=== PATIENT | female | born 1965 | race Caucasian/White ===

== ENCOUNTER 2019-06-30 17:30 | Emergency (ER) | payer OTHER ==
[2019-06-30 17:42] VITALS: TEMP 97.7
[2019-06-30] MEDS ORDERED: SODIUM CHLORIDE 0.9% 1,000 ML IV STA (17:58)
[2019-06-30] MEDS ORDERED: PANTOPRAZOLE 40 MG/10 ML VIAL IVP STA (17:58)
[2019-06-30] MEDS ORDERED: ONDANSETRON 4 MG/2 ML VIAL IVP STA (17:58)
[2019-06-30] MEDS ORDERED: methylPREDNISolone SOD SUCCI 125 MG/2 ML VIAL IV STA (18:00)
[2019-06-30] MEDS ORDERED: IPRATROPIUM-ALBUTEROL 3 ML NEB INHALATION STA (18:00)
--- NOTE | 2019-06-30 18:14 | ED ---
Abdominal Pain HPI - General Chief Complaint: Abdominal Pain Stated Complaint: Cough, abd pain Time Seen by Provider: 06/30/19 17:43 Source: patient, RN notes reviewed, old records reviewed Mode of arrival: ambulatory Limitations: no limitations - History of Present Illness Initial Comments: Patient is a 54-year-old female presents emergency room today for chief complaint of coughing, right ear plugged and abdominal pain. She's been having symptoms for the past week. At this time patient's reporting a productive cough. No fever. She states that she has been nauseated not been eating much. She denies any associated fevers or chills. Patient states that she is a smoker but has not been diagnosed with COPD. - Related Data Home Medications Medication Instructions Recorded Confirmed Atorvastatin [Lipitor] 80 mg PO DAILY 05/12/14 08/22/15 Cyclobenzaprine [Flexeril] 10 mg PO DAILY PRN 05/12/14 08/22/15 Estrogens, Conjugated [Premarin] 0.625 mg PO DAILY 05/12/14 08/22/15 Ibuprofen [Motrin] 800 mg PO Q8HR PRN 05/12/14 08/22/15 Lisinopril [Zestril] 5 mg PO DAILY 05/12/14 08/22/15 Niacin [Niacin ER] 500 mg PO DAILY 05/12/14 08/22/15 Omeprazole [PriLOSEC] 20 mg PO AC-BRKFST 05/12/14 08/22/15 PARoxetine [Paxil] 20 mg PO DAILY 05/12/14 08/22/15 Topiramate [Qudexy Xr] 25 mg PO DAILY 05/12/14 08/22/15 metFORMIN HCL [Glucophage] 500 mg PO BID 05/12/14 08/22/15 Previous Rx's Medication Instructions Recorded Albuterol Sulfate [Proair Hfa] 2 puff INHALATION Q4HR PRN #1 05/01/14 inhaler Acetaminophen-Codeine 300-30mg 1 tab PO Q4H PRN #20 tablet 08/22/15 [Tylenol #3] Ciprofloxacin HCl [Cipro] 500 mg PO Q12HR #20 tablet 08/22/15 Albuterol Inhaler [Ventolin Hfa 1 - 2 puff INHALATION RT-Q6H PRN 06/30/19 Inhaler] #1 inhaler Azithromycin 250 mg PO DAILY 5 Days #6 tab 06/30/19 Famotidine [Pepcid] 20 mg PO DAILY #20 tablet 06/30/19 Ondansetron Odt [Zofran Odt] 4 mg PO Q8HR PRN #12 tab 06/30/19 predniSONE 50 mg PO DAILY #5 tablet 06/30/19 Allergies Allergy/AdvReac Type Severity Reaction Status Date / Time No Known Allergies Allergy Verified 06/30/19 17:41 Review of Systems ROS Statement: Those systems with pertinent positive or pertinent negative responses have been documented in the HPI. ROS Other: All systems not noted in ROS Statement are negative. Past Medical History Past Medical History: Diabetes Mellitus, Hyperlipidemia, Hypertension History of Any Multi-Drug Resistant Organisms: None Reported Past Surgical History: Hysterectomy Past Psychological History: No Psychological Hx Reported Smoking Status: Current every day smoker Past Alcohol Use History: None Reported Past Drug Use History: None Reported General Exam - General Exam Comments Initial Comments: 54-year-old female. Alert and oriented. Limitations: no limitations Head exam: Present: atraumatic, normocephalic, normal inspection Eye exam: Present: normal appearance, PERRL, EOMI. Absent: scleral icterus, conjunctival injection, periorbital swelling ENT exam: Present: normal exam, mucous membranes moist Neck exam: Present: normal inspection. Absent: tenderness, meningismus, lymphadenopathy Respiratory exam: Present: wheezes (Minimal wheezing bilaterally.). Absent: normal lung sounds bilaterally, respiratory distress, rales, rhonchi, stridor Cardiovascular Exam: Present: regular rate, normal rhythm, normal heart sounds. Absent: systolic murmur, diastolic murmur, rubs, gallop, clicks GI/Abdominal exam: Present: soft, tenderness (Epigastric tenderness), normal bowel sounds. Absent: distended, guarding, rebound, rigid Extremities exam: Present: normal inspection, full ROM, normal capillary refill. Absent: tenderness, pedal edema, joint swelling, calf tenderness Back exam: Present: normal inspection Neurological exam: Present: alert, oriented X3, CN II-XII intact Psychiatric exam: Present: normal affect, normal mood Skin exam: Present: warm, dry, intact, normal color. Absent: rash Course Vital Signs 06/30/19 06/30/19 06/30/19 17:40 18:17 18:24 Temperature 97.7 F Pulse Rate 75 63 67 Respiratory 18 16 16 Rate Blood Pressure 116/79 O2 Sat by Pulse 93 L Oximetry 06/30/19 18:43 Temperature Pulse Rate 76 Respiratory 16 Rate Blood Pressure 135/79 O2 Sat by Pulse 99 Oximetry Medical Decision Making - Medical Decision Making This patient's a 54-year-old female who presents emergency Department with multiple complaints including ear pain, cough congestion. She also complains of some nausea. Abdominal pain. Patient's labs reviewed at this time and unremarkable. Chest x-ray and KUB show no acute changes. On exam she did have some wheezing, with a productive cough concern for bronchitis. She is a smoker. Discussed the importance of smoking cessation for greater than 5 minutes. She states she would be willing to try a nicotine patches. Patient at this time feels much better after the Solu-Medrol breathing treatment, Protonix and Zofran. I discussed that I will discharge the Patient with multiple prescriptions including Zofran and Protonix help with possible gastritis or ulcer. Also short course of steroids and azithromycin for bronchitis. Discussed also using inhaler. PATIENT'S aunt to return parameters were discussed. - Lab Data Result diagrams: 06/30/19 18:03 06/30/19 18:03 Lab Results 06/30/19 06/30/19 06/30/19 Range/Units 18:03 18:03 18:03 WBC 7.0 (3.8-10.6) k/uL RBC 4.67 (3.80-5.40) m/uL Hgb 14.2 (11.4-16.0) gm/dL Hct 42.5 (34.0-46.0) % MCV 91.0 (80.0-100.0) fL MCH 30.4 (25.0-35.0) pg MCHC 33.4 (31.0-37.0) g/dL RDW 13.4 (11.5-15.5) % Plt Count 330 (150-450) k/uL Neutrophils % 49 % Lymphocytes % 41 % Monocytes % 5 % Eosinophils % 2 % Basophils % 0 % Neutrophils # 3.5 (1.3-7.7) k/uL Lymphocytes # 2.9 (1.0-4.8) k/uL Monocytes # 0.3 (0-1.0) k/uL Eosinophils # 0.2 (0-0.7) k/uL Basophils # 0.0 (0-0.2) k/uL PT 9.8 (9.0-12.0) sec INR 0.9 (<1.2) APTT 21.6 L (22.0-30.0) sec Sodium 139 (137-145) mmol/L Potassium 4.2 (3.5-5.1) mmol/L Chloride 111 H (98-107) mmol/L Carbon Dioxide 21 L (22-30) mmol/L Anion Gap 7 mmol/L BUN 13 (7-17) mg/dL Creatinine 0.72 (0.52-1.04) mg/dL Est GFR (CKD-EPI)AfAm >90 (>60 ml/min/1.73 sqM) Est GFR (CKD-EPI)NonAf >90 (>60 ml/min/1.73 sqM) Glucose 114 H (74-99) mg/dL Calcium 9.4 (8.4-10.2) mg/dL Total Bilirubin 0.1 L (0.2-1.3) mg/dL AST 20 (14-36) U/L ALT 19 (4-34) U/L Alkaline Phosphatase 58 (38-126) U/L Total Protein 6.3 (6.3-8.2) g/dL Albumin 3.7 (3.5-5.0) g/dL Amylase <30 L (30-110) U/L Lipase 54 (23-300) U/L Urine Color Urine Appearance (Clear) Urine pH (5.0-8.0) Ur Specific Rudyard (1.001-1.035) Urine Protein (Negative) Urine Glucose (UA) (Negative) Urine Ketones (Negative) Urine Blood (Negative) Urine Nitrite (Negative) Urine Bilirubin (Negative) Urine Urobilinogen (<2.0) mg/dL Ur Leukocyte Esterase (Negative) 06/30/19 Range/Units 18:42 WBC (3.8-10.6) k/uL RBC (3.80-5.40) m/uL Hgb (11.4-16.0) gm/dL Hct (34.0-46.0) % MCV (80.0-100.0) fL MCH (25.0-35.0) pg MCHC (31.0-37.0) g/dL RDW (11.5-15.5) % Plt Count (150-450) k/uL Neutrophils % % Lymphocytes % % Monocytes % % Eosinophils % % Basophils % % Neutrophils # (1.3-7.7) k/uL Lymphocytes # (1.0-4.8) k/uL Monocytes # (0-1.0) k/uL Eosinophils # (0-0.7) k/uL Basophils # (0-0.2) k/uL PT (9.0-12.0) sec INR (<1.2) APTT (22.0-30.0) sec Sodium (137-145) mmol/L Potassium (3.5-5.1) mmol/L Chloride (98-107) mmol/L Carbon Dioxide (22-30) mmol/L Anion Gap mmol/L BUN (7-17) mg/dL Creatinine (0.52-1.04) mg/dL Est GFR (CKD-EPI)AfAm (>60 ml/min/1.73 sqM) Est GFR (CKD-EPI)NonAf (>60 ml/min/1.73 sqM) Glucose (74-99) mg/dL Calcium (8.4-10.2) mg/dL Total Bilirubin (0.2-1.3) mg/dL AST (14-36) U/L ALT (4-34) U/L Alkaline Phosphatase (38-126) U/L Total Protein (6.3-8.2) g/dL Albumin (3.5-5.0) g/dL Amylase (30-110) U/L Lipase (23-300) U/L Urine Color Yellow Urine Appearance Clear (Clear) Urine pH 6.0 (5.0-8.0) Ur Specific Rudyard 1.019 (1.001-1.035) Urine Protein Negative (Negative) Urine Glucose (UA) Negative (Negative) Urine Ketones Negative (Negative) Urine Blood Negative (Negative) Urine Nitrite Negative (Negative) Urine Bilirubin Negative (Negative) Urine Urobilinogen <2.0 (<2.0) mg/dL Ur Leukocyte Esterase Negative (Negative) 06/30/19 19:12 EKG performed at 1851 shows normal sinus rhythm normal ECG. Ventricularly 67 bpm. And 40 ms. Frustration 94 ms. QT QTc is 420/445 ms. - Radiology Data Radiology results: report reviewed Chest x-ray shows a nonacute abdomen. Chest x-ray is normal no changes. Disposition Clinical Impression: Bronchitis, Gastritis Disposition: HOME SELF-CARE Condition: Good Instructions (If sedation given, give patient instructions): Gastritis (ED), Acute Bronchitis (ED) Additional Instructions: Please use medication as discussed. Please follow up with family doctor if symptoms have not improved over the next two days. Please return to the emergency room if your symptoms increase or worsen or for any other concerns. Prescriptions: Azithromycin 250 mg PO DAILY 5 Days #6 tab Famotidine [Pepcid] 20 mg PO DAILY #20 tablet predniSONE 50 mg PO DAILY #5 tablet Albuterol Inhaler [Ventolin Hfa Inhaler] 1 - 2 puff INHALATION RT-Q6H PRN #1 inhaler PRN Reason: Cough Ondansetron Odt [Zofran Odt] 4 mg PO Q8HR PRN #12 tab PRN Reason: Nausea Is patient prescribed a controlled substance at d/c from ED?: No Referrals: Manolo Bolaños MD [Primary Care Provider] - 1-2 days Time of Disposition: 19:36
[2019-06-30 18:18] LABS: Basophils % (A) 0 %; Eosinophils # (A) 0.2 k/uL (0-0.7); Eosinophils % (A) 2 %; HCT 42.5 % (34.0-46.0); HGB 14.2 gm/dL (11.4-16.0); Lymphocytes # (A) 2.9 k/uL (1.0-4.8); Lymphocytes % (A) 41 %; MCH 30.4 pg (25.0-35.0); MCHC 33.4 g/dL (31.0-37.0); Mean Platelet Volume 7.5; Monocytes # (A) 0.3 k/uL (0-1.0); Monocytes % (A) 5 %; Neutrophils # (A) 3.5 k/uL (1.3-7.7); Neutrophils % (A) 49 %; Platelet Count 330 k/uL (150-450); RBC 4.67 m/uL (3.80-5.40); RDW 13.4 % (11.5-15.5)
[2019-06-30 18:20] VITALS: RESP 16
[2019-06-30 18:27] LABS: ALT 19 U/L (4-34); AST 20 U/L (14-36); African American GFR (CKD) >90 (>60 ml/min/1.73 sqM); Albumin 3.7 g/dL (3.5-5.0); Alkaline Phosphatase 58 U/L (38-126); Amylase <30 U/L (30-110); Anion Gap 7 mmol/L; Blood Urea Nitrogen 13 mg/dL (7-17); Calcium 9.4 mg/dL (8.4-10.2); Carbon Dioxide 21 mmol/L (22-30); Chloride 111 mmol/L (98-107); Glucose 114 mg/dL (74-99); Non-African American GFR(CKD) >90 (>60 ml/min/1.73 sqM); Potassium 4.2 mmol/L (3.5-5.1); Sodium 139 mmol/L (137-145); Total Bilirubin 0.1 mg/dL (0.2-1.3); Total Protein 6.3 g/dL (6.3-8.2)
[2019-06-30 18:33] LABS: INR 0.9 (<1.2); Prothrombin Time 9.8 sec (9.0-12.0)
[2019-06-30 18:39] LABS: Partial Thromboplastin Time 21.6 sec (22.0-30.0)
[2019-06-30 18:46] VITALS: BP 135/79; PULSE 76
--- NOTE | 2019-06-30 18:51 | XR ---
EXAMINATION TYPE: XR KUB DATE OF EXAM: 06/30/2019 COMPARISON: NONE HISTORY: Cough and congestion TECHNIQUE: 2 views upright FINDINGS: Bowel gas pattern is normal. There is no sign of intestinal obstruction or pneumoperitoneum . Fecal pattern is normal. There is no sign of a mass. There are no pathologic calcifications over th e kidneys. IMPRESSION: Nonacute abdomen.
--- NOTE | 2019-06-30 18:52 | XR ---
EXAMINATION TYPE: XR chest 2V DATE OF EXAM: 06/30/2019 COMPARISON: 05/01/2014 HISTORY: Abdominal pain chest pain TECHNIQUE: FINDINGS: Heart and mediastinum are normal. Lungs are clear. Diaphragm is normal. Bony thorax is inta ct IMPRESSION: Normal chest. No change.
[2019-06-30 19:08] LABS: Appearance,Urine Clear (Clear); Bilirubin,Urine Negative (Negative); Blood,Urine Negative (Negative); Color,Urine Yellow; Glucose,Urine (UA) Negative (Negative); Ketones,Urine Negative (Negative); Leukocyte Esterase,Urine Negative (Negative); Nitrite,Urine Negative (Negative); Protein,Urine Negative (Negative); Specific Gravity,Urine 1.019 (1.001-1.035); Urobilinogen,Urine <2.0 mg/dL (<2.0)
== END 2019-06-30 19:51 | disposition home or self-care (01) ==
LOC: EC 17:30
DX: K29.70 Gastritis, unspecified, without bleeding (principal); J40 Bronchitis, not specified as acute or chronic; E11.9 Type 2 diabetes mellitus without complications; E78.5 Hyperlipidemia, unspecified; I10 Essential (primary) hypertension; F17.200 Nicotine dependence, unspecified, uncomplicated; Z71.6 Tobacco abuse counseling; Z90.710 Acquired absence of both cervix and uterus; Z79.890 Hormone replacement therapy; Z79.84 Long term (current) use of oral hypoglycemic drugs; Z79.899 Other long term (current) drug therapy
CPT/HCPCS: 99284 ×2; 99406 ×2; 96374 ×2; 96375 ×3; 96361 ×2; 36415; 94640; 93005; 80053; 82150; 83690; 85025; 85610; 85730; 81003; 71046; 74018; J2930; J2405; C9113

== ENCOUNTER 2021-03-12 19:40 | Emergency (ER) | payer OTHER ==
[2021-03-12 20:27] VITALS: BP 120/74; PULSE 62; RESP 22; TEMP 97.9
[2021-03-12] MEDS ORDERED: NYSTATIN 100,000 UNIT/GM POWD 15 GM TOPICAL STA (22:55)
[2021-03-12] MEDS ORDERED: KETOROLAC 15 MG/ML 1 ML VIAL IM STA (22:58)
--- NOTE | 2021-03-12 22:58 | ED ---
Skin/Abscess/FB HPI - General Chief complaint: Skin/Abscess/Foreign Body Stated complaint: Abscess/ Rash Time Seen by Provider: 03/12/21 22:18 Source: patient, family Mode of arrival: wheelchair Limitations: no limitations - History of Present Illness Initial comments: 55-year-old female patient presents to the emergency department today for evaluation of rash and pain to the left groin region. States for the last few days the area has become more painful and raw. Denies any drainage. Denies any fever or chills with this. Denies history of similar symptoms. She does have history of diabetes. Denies using any ointments or creams over the area. - Related Data Home Medications Medication Instructions Recorded Confirmed Atorvastatin [Lipitor] 80 mg PO DAILY 05/12/14 08/22/15 Cyclobenzaprine [Flexeril] 10 mg PO DAILY PRN 05/12/14 08/22/15 Estrogens, Conjugated [Premarin] 0.625 mg PO DAILY 05/12/14 08/22/15 Ibuprofen [Motrin] 800 mg PO Q8HR PRN 05/12/14 08/22/15 Niacin [Niacin ER] 500 mg PO DAILY 05/12/14 08/22/15 Omeprazole [PriLOSEC] 20 mg PO AC-BRKFST 05/12/14 08/22/15 PARoxetine [Paxil] 20 mg PO DAILY 05/12/14 08/22/15 Topiramate [Qudexy Xr] 25 mg PO DAILY 05/12/14 08/22/15 lisinopriL [Zestril] 5 mg PO DAILY 05/12/14 08/22/15 metFORMIN HCL [Glucophage] 500 mg PO BID 05/12/14 08/22/15 Previous Rx's Medication Instructions Recorded Albuterol Sulfate [Proair Hfa] 2 puff INHALATION Q4HR PRN #1 05/01/14 inhaler Acetaminophen-Codeine 300-30mg 1 tab PO Q4H PRN #20 tablet 08/22/15 [Tylenol #3] Ciprofloxacin HCl [Cipro] 500 mg PO Q12HR #20 tablet 08/22/15 Albuterol Inhaler (Mhu) [Ventolin 1 - 2 puff INHALATION RT-Q6H PRN 06/30/19 Hfa Inhaler (Mhu)] #1 inhaler Azithromycin 250 mg PO DAILY 5 Days #6 tab 06/30/19 Famotidine [Pepcid] 20 mg PO DAILY #20 tablet 06/30/19 Ondansetron Odt [Zofran Odt] 4 mg PO Q8HR PRN #12 tab 06/30/19 predniSONE 50 mg PO DAILY #5 tablet 06/30/19 Ibuprofen [Motrin] 600 mg PO Q8HR PRN #30 tab 03/12/21 Nystatin 100,000 Unit/gm Powd 1 applic TOPICAL TID #30 gm 03/12/21 [Mycostatin Powder] Allergies Allergy/AdvReac Type Severity Reaction Status Date / Time No Known Allergies Allergy Verified 03/12/21 20:27 Review of Systems ROS Statement: Those systems with pertinent positive or pertinent negative responses have been documented in the HPI. ROS Other: All systems not noted in ROS Statement are negative. Past Medical History Past Medical History: Diabetes Mellitus, Hyperlipidemia, Hypertension History of Any Multi-Drug Resistant Organisms: None Reported Past Surgical History: Hysterectomy Past Psychological History: No Psychological Hx Reported Smoking Status: Current every day smoker Past Alcohol Use History: None Reported Past Drug Use History: None Reported General Exam Limitations: no limitations General appearance: alert, in no apparent distress, other (This is a well- developed, well-nourished adult female patient in no acute distress.) Respiratory exam: Present: normal lung sounds bilaterally. Absent: respiratory distress, wheezes, rales, rhonchi, stridor Cardiovascular Exam: Present: regular rate, normal rhythm, normal heart sounds. Absent: systolic murmur, diastolic murmur, rubs, gallop, clicks GI/Abdominal exam: Present: soft, normal bowel sounds, other (There is moist erythematous skin with maceration noted to the left lower abdominal skin fold extending to the left groin. No drainage. No odor.). Absent: distended, tenderness, guarding, rebound, rigid Neurological exam: Present: alert, oriented X3, CN II-XII intact Psychiatric exam: Present: normal affect, normal mood Skin exam: Present: warm, dry, intact, normal color. Absent: rash Course Vital Signs 03/12/21 20:24 Temperature 97.9 F Pulse Rate 62 Respiratory 22 Rate Blood Pressure 120/74 O2 Sat by Pulse 100 Oximetry Medical Decision Making - Medical Decision Making 55-year-old female patient presents to the emergency department today for evaluation of redness, pain, wound to the left groin region. Physical examination did reveal moist skin, erythema, maceration over the left groin and lower abdominal skin fold. This is consistent with candidal skin infection. She was given good education regarding hygiene and cleansing. She'll be given prescription for nystatin powder to apply to the area 3 times a day. She is instructed to follow-up with her primary care physician for recheck in 1-2 days. Return parameters discussed in detail. She verbalizes understanding and agrees with this plan. My attending is Dr. Ely. Disposition Clinical Impression: Candidal skin infection Disposition: HOME SELF-CARE Condition: Good Instructions (If sedation given, give patient instructions): Skin Yeast Infection (ED) Additional Instructions: Keep area clean and dry. Use powder as directed. He may need uses for 2 weeks to completely clear the infection. Follow-up with the primary care physician for recheck in 1-2 days. Return for any new, worsening, or concerning symptoms. Prescriptions: Ibuprofen [Motrin] 600 mg PO Q8HR PRN #30 tab PRN Reason: Pain Nystatin 100,000 Unit/gm Powd [Mycostatin Powder] 1 applic TOPICAL TID #30 gm Is patient prescribed a controlled substance at d/c from ED?: No Referrals: Manolo Bolaños MD [Primary Care Provider] - 1-2 days Time of Disposition: 22:58
== END 2021-03-12 23:29 | disposition home or self-care (01) ==
LOC: EC 19:40
DX: B37.2 Candidiasis of skin and nail (principal); E11.9 Type 2 diabetes mellitus without complications; E78.5 Hyperlipidemia, unspecified; I10 Essential (primary) hypertension; F17.200 Nicotine dependence, unspecified, uncomplicated; Z79.84 Long term (current) use of oral hypoglycemic drugs; Z90.710 Acquired absence of both cervix and uterus
CPT/HCPCS: 99283; 96372; J1885

== ENCOUNTER → 2022-10-24 | Outpatient (CLI) | payer OTHER ==
[2022-10-24 13:40] LABS: African American GFR (CKD) >90 (>60 ml/min/1.73 sqM); Blood Urea Nitrogen 13 mg/dL (7-17); Non-African American GFR(CKD) >90 (>60 ml/min/1.73 sqM)
--- NOTE | 2022-10-25 07:33 | CT ---
EXAMINATION TYPE: CT abdomen pelvis wo/w con DATE OF EXAM: 10/24/2022 COMPARISON: No pertinent comparisons at this location. INDICATION: Abn xray DLP: 2502.0 mGycm, Automated exposure control for dose reduction was used. CONTRAST: 100ml mL of Isovue 300. Study performed with Oral Contrast TECHNIQUE: Axial images were obtained from above the diaphragm to the pubic rami in the axial plane a t 5 mm thick sections. Reconstructed images are reviewed on the computer in the coronal plane. FINDINGS: Limited CT sections are obtained the lung bases. The lung bases are clear. CT ABDOMEN: Liver: Normal Spleen: Normal Pancreas: Normal Adrenal glands: The adrenal glands are normal. Gallbladder: Normal Kidneys: No masses are evident. No hydronephrosis is present. No cysts are present. No obstructing renal stones are evident. Punctate calcification at the inferior pole right kidney is not excluded, series 3 image 42. Aorta: Vascular calcification is within the aorta. Inferior vena cava: Normal. CT PELVIS: Loops of bowel within the abdomen and pelvis are normal. There are loops of bowel which are incom pletely distended or lack oral contrast limiting their evaluation. Appendix: Normal as visualized. Urinary bladder: Normal. Genitourinary structures: Uterus and ovaries are not identified. Osseous structures: No suspicious lytic or sclerotic lesions. IMPRESSIONS: 1. No suspicious acute changes
== END | disposition home or self-care (01) ==
LOC: RADCTMAIN 12:59
PROVIDERS: ATTEND Family Medicine
DX: R93.7 Abnormal findings on diagnostic imaging of other parts of musculoskeletal system (principal)
CPT/HCPCS: 82565; 84520; 74178; 36415; Q9967

== ENCOUNTER 2023-05-09 16:16 | Emergency (ER) | payer OTHER ==
--- NOTE | 2023-05-09 17:16 | ED ---
General Adult HPI - History of Present Illness -: unknown Consistency: constant Improves with: none Worsens with: none Associated Symptoms: denies other symptoms <Balbir Tello - Last Filed: 05/10/23 02:40> - General Source: patient, RN notes reviewed, old records reviewed Mode of arrival: ambulatory Limitations: no limitations <Blake Mendez - Last Filed: 05/10/23 15:28> - General Chief complaint: Psychiatric Symptoms Stated complaint: EPS petition Time Seen by Provider: 05/09/23 16:55 - History of Present Illness Initial comments: This is a 58-year-old female to the emergency department for evaluation psychiatric illness and suicidal thoughts (Balbir Tello) 58-year-old female presenting with suicide attempt. Patient accompanied by local police, she has been petitioned for mental health evaluation. She states that she is currently being evicted and took medication in an attempt to harm herself. She states she took 10 Fioricet tablets. No other substances ingested. This was prior to arrival. (Blake Mendez) - Related Data Home Medications Medication Instructions Recorded Confirmed Atorvastatin [Lipitor] 80 mg PO DAILY 05/12/14 08/22/15 Cyclobenzaprine [Flexeril] 10 mg PO DAILY PRN 05/12/14 08/22/15 Estrogens, Conjugated [Premarin] 0.625 mg PO DAILY 05/12/14 08/22/15 Ibuprofen [Motrin] 800 mg PO Q8HR PRN 05/12/14 08/22/15 Niacin [Niacin ER] 500 mg PO DAILY 05/12/14 08/22/15 Omeprazole [PriLOSEC] 20 mg PO AC-BRKFST 05/12/14 08/22/15 PARoxetine [Paxil] 20 mg PO DAILY 05/12/14 08/22/15 Topiramate [Qudexy Xr] 25 mg PO DAILY 05/12/14 08/22/15 lisinopriL [Zestril] 5 mg PO DAILY 05/12/14 08/22/15 metFORMIN HCL [Glucophage] 500 mg PO BID 05/12/14 08/22/15 Previous Rx's Medication Instructions Recorded Albuterol Sulfate [Proair Hfa] 2 puff INHALATION Q4HR PRN #1 05/01/14 inhaler Acetaminophen-Codeine 300-30mg 1 tab PO Q4H PRN #20 tablet 08/22/15 [Tylenol #3] Ciprofloxacin HCl [Cipro] 500 mg PO Q12HR #20 tablet 08/22/15 Albuterol Inhaler [Ventolin Hfa 1 - 2 puff INHALATION RT-Q6H PRN 06/30/19 Inhaler] #1 inhaler Azithromycin 250 mg PO DAILY 5 Days #6 tab 06/30/19 Famotidine [Pepcid] 20 mg PO DAILY #20 tablet 06/30/19 Ondansetron Odt [Zofran Odt] 4 mg PO Q8HR PRN #12 tab 06/30/19 predniSONE 50 mg PO DAILY #5 tablet 06/30/19 Ibuprofen [Motrin] 600 mg PO Q8HR PRN #30 tab 03/12/21 Nystatin 100,000 Unit/gm Powd 1 applic TOPICAL TID #30 gm 03/12/21 [Mycostatin Powder] Allergies Allergy/AdvReac Type Severity Reaction Status Date / Time No Known Allergies Allergy Verified 05/09/23 16:50 Review of Systems ROS Other: All systems not noted in ROS Statement are negative. <Balbir Tello - Last Filed: 05/10/23 02:40> ROS Other: All systems not noted in ROS Statement are negative. <Blake Mendez - Last Filed: 05/10/23 15:28> ROS Statement: Those systems with pertinent positive or pertinent negative responses have been documented in the HPI. Past Medical History Past Medical History: Diabetes Mellitus, Hyperlipidemia, Hypertension History of Any Multi-Drug Resistant Organisms: None Reported Past Surgical History: Hysterectomy Past Psychological History: No Psychological Hx Reported Smoking Status: Current every day smoker Past Alcohol Use History: None Reported Past Drug Use History: None Reported <Blake Mendez - Last Filed: 05/10/23 15:28> General Exam General appearance: alert, in no apparent distress Head exam: Present: atraumatic, normocephalic, normal inspection Eye exam: Present: normal appearance, PERRL, EOMI. Absent: scleral icterus, conjunctival injection, periorbital swelling ENT exam: Present: normal exam, mucous membranes moist Neck exam: Present: normal inspection. Absent: tenderness, meningismus, lymphadenopathy Respiratory exam: Present: normal lung sounds bilaterally. Absent: respiratory distress, wheezes, rales, rhonchi, stridor Cardiovascular Exam: Present: regular rate, normal rhythm, normal heart sounds. Absent: systolic murmur, diastolic murmur, rubs, gallop, clicks GI/Abdominal exam: Present: soft, normal bowel sounds. Absent: distended, tenderness, guarding, rebound, rigid Extremities exam: Present: normal inspection, full ROM, normal capillary refill. Absent: tenderness, pedal edema, joint swelling, calf tenderness Back exam: Present: normal inspection Neurological exam: Present: alert, oriented X3, CN II-XII intact Psychiatric exam: Present: normal affect, normal mood Skin exam: Present: warm, dry, intact, normal color. Absent: rash <Balbir Tello - Last Filed: 05/10/23 02:40> Limitations: no limitations General appearance: alert, appears intoxicated Head exam: Present: atraumatic, normocephalic Eye exam: Present: normal appearance, PERRL ENT exam: Present: normal exam Neck exam: Present: normal inspection. Absent: tenderness, meningismus Respiratory exam: Present: normal lung sounds bilaterally. Absent: respiratory distress, wheezes Cardiovascular Exam: Present: regular rate, normal rhythm GI/Abdominal exam: Present: soft. Absent: distended, tenderness Extremities exam: Present: normal inspection Neurological exam: Present: alert, oriented X3, CN II-XII intact Psychiatric exam: Present: depressed, flat affect, suicidal ideation Skin exam: Present: warm, dry, intact <Blake Mendez - Last Filed: 05/10/23 15:28> Course <Balbir Tello - Last Filed: 05/10/23 02:40> <Blake Mendez - Last Filed: 05/10/23 15:28> Vital Signs 05/09/23 05/10/23 05/10/23 16:47 03:35 07:54 Temperature 97.3 F L 98.1 F Pulse Rate 64 86 Respiratory 17 16 18 Rate Blood Pressure 134/77 121/86 O2 Sat by Pulse 97 98 Oximetry 05/10/23 10:27 Temperature 98.2 F Pulse Rate 88 Respiratory 18 Rate Blood Pressure 120/86 O2 Sat by Pulse 98 Oximetry - Reevaluation(s) Reevaluation #1: Records reviewed (Balbir Tello) 05/09/23 19:31 Medically cleared for EPS evaluation. (Blake Mendez) Medical Decision Making - Lab Data Result diagrams: 05/09/23 18:17 05/09/23 18:17 <Balbir Tello - Last Filed: 05/10/23 02:40> - Lab Data Result diagrams: 05/09/23 18:17 05/09/23 18:17 <Blake Mendez - Last Filed: 05/10/23 15:28> - Medical Decision Making Was pt. sent in by a medical professional or institution (, PA, TRANSCRIPTER, urgent care, hospital, or jail...) When possible be specific @ -No Did you speak to anyone other than the patient for history (EMS, parent, family, police, friend...)? What history was obtained from this source @ -No Did you review nursing and triage notes (agree or disagree)? Why? @ -I reviewed and agree with nursing and triage notes Were old charts reviewed (outside hosp., previous admission, EMS record, old EKG, old radiological studies, urgent care reports/EKG's, jail records)? Report findings @ -No old charts were reviewed Differential Diagnosis (chest pain, altered mental status, abdominal pain women, abdominal pain men, vaginal bleeding, weakness, fever, dyspnea, syncope, headache, dizziness, GI bleed, back pain, seizure, CVA, palpatations, mental health, musculoskeletal)? @ -Differential Mental Health Depression, anxiety, bipolar, psychosis, schizophrenia, borderline personality, situational depression, adjustment disorder, behavioral disorder, brain tumor, malingering, substance abuse, encephalopathy, medication reaction, dementia, hypothyroidism, degenerative neurologic disorder, lupus.... This is not meant to be all-inclusive list EKG interpreted by me (3pts min.). @Sinus bradycardia rate of 59, low voltage, UT interval 153, QRS duration 97, Q TC 403 X-rays interpreted by me (1pt min.). @ -None done CT interpreted by me (1pt min.). @ -None done U/S interpreted by me (1pt. min.). @ -None done What testing was considered but not performed or refused? (CT, X-rays, U/S, labs)? Why? @ -None What meds were considered but not given or refused? Why? @ -None Did you discuss the management of the patient with other professionals (perry baez i.e. , PA, TRANSCRIPTER, lab, RT, psych nurse, clinical social work aide, fire marshal refinery, teacher, corporate ethics officer, rn field case manager)? Give summary @ -No Was smoking cessation discussed for >3mins.? @ -No Was critical care preformed (if so, how long)? @ -No Were there social determinants of health that impacted care today? How? (Homelessness, low income, unemployed, alcoholism, drug addiction, transportation, low edu. Level, literacy, decrease access to med. care, fci, rehab)? @ -No Was there de-escalation of care discussed even if they declined (Discuss DNR or withdrawal of care, Hospice)? DNR status @ -No What co-morbidities impacted this encounter? (DM, HTN, Smoking, COPD, CAD, Cancer, CVA, ARF, Chemo, Hep., AIDS, mental health diagnosis, sleep apnea, morbid obesity)? @ -None Was patient admitted / discharged? Hospital course, mention meds given and route, prescriptions, significant lab abnormalities, going to OR and other pertinent info. @ -Patient has been medically cleared and awaiting EPS eval (Blake Mendez) - Lab Data Lab Results 05/09/23 05/09/23 05/09/23 Range/Units 17:32 18:17 18:17 WBC 10.4 (3.8-10.6) k/uL RBC 4.96 (3.80-5.40) m/uL Hgb 15.8 (11.4-16.0) gm/dL Hct 47.4 H (34.0-46.0) % MCV 95.5 (80.0-100.0) fL MCH 31.8 (25.0-35.0) pg MCHC 33.3 (31.0-37.0) g/dL RDW 12.9 (11.5-15.5) % Plt Count 319 (150-450) k/uL MPV 7.6 Neutrophils % 54 % Lymphocytes % 40 % Monocytes % 4 % Eosinophils % 1 % Basophils % 1 % Neutrophils # 5.6 (1.3-7.7) k/uL Lymphocytes # 4.1 (1.0-4.8) k/uL Monocytes # 0.4 (0-1.0) k/uL Eosinophils # 0.1 (0-0.7) k/uL Basophils # 0.1 (0-0.2) k/uL Sodium 136 L (137-145) mmol/L Potassium 4.0 (3.5-5.1) mmol/L Chloride 106 (98-107) mmol/L Carbon Dioxide 19 L (22-30) mmol/L Anion Gap 11 mmol/L BUN 12 (7-17) mg/dL Creatinine 0.63 (0.52-1.04) mg/dL Est GFR (CKD-EPI)AfAm >90 (>60 ml/min/1.73 sqM) Est GFR (CKD-EPI)NonAf >90 (>60 ml/min/1.73 sqM) Glucose 89 (74-99) mg/dL Calcium 9.9 (8.4-10.2) mg/dL Total Bilirubin 0.4 (0.2-1.3) mg/dL AST 25 (14-36) U/L ALT 30 (4-34) U/L Alkaline Phosphatase 74 (38-126) U/L Total Protein 6.9 (6.3-8.2) g/dL Albumin 4.2 (3.5-5.0) g/dL Urine Color Colorless Urine Appearance Clear (Clear) Urine pH 5.5 (5.0-8.0) Ur Specific Guin 1.003 (1.001-1.035) Urine Protein Negative (Negative) Urine Glucose (UA) Negative (Negative) Urine Ketones Negative (Negative) Urine Blood Negative (Negative) Urine Nitrite Negative (Negative) Urine Bilirubin Negative (Negative) Urine Urobilinogen <2.0 (<2.0) mg/dL Ur Leukocyte Esterase Negative (Negative) Salicylates <1.0 mg/dL Urine Opiates Screen Not Detected (NotDetected) Ur Oxycodone Screen Not Detected (NotDetected) Urine Methadone Screen Not Detected (NotDetected) Acetaminophen 10.2 ug/mL Ur Barbiturates Screen Detected H (NotDetected) U Tricyclic Antidepress Not Detected (NotDetected) Ur Phencyclidine Scrn Not Detected (NotDetected) Ur Amphetamines Screen Not Detected (NotDetected) U Methamphetamines Scrn Not Detected (NotDetected) U Benzodiazepines Scrn Not Detected (NotDetected) Urine Cocaine Screen Not Detected (NotDetected) U Marijuana (THC) Screen Not Detected (NotDetected) Serum Alcohol <10 mg/dL Influenza Type A (PCR) (Not Detectd) Influenza Type B (PCR) (Not Detectd) RSV (PCR) (Not Detectd) SARS-CoV-2 (PCR) (Not Detectd) 05/10/23 Range/Units 02:13 WBC (3.8-10.6) k/uL RBC (3.80-5.40) m/uL Hgb (11.4-16.0) gm/dL Hct (34.0-46.0) % MCV (80.0-100.0) fL MCH (25.0-35.0) pg MCHC (31.0-37.0) g/dL RDW (11.5-15.5) % Plt Count (150-450) k/uL MPV Neutrophils % % Lymphocytes % % Monocytes % % Eosinophils % % Basophils % % Neutrophils # (1.3-7.7) k/uL Lymphocytes # (1.0-4.8) k/uL Monocytes # (0-1.0) k/uL Eosinophils # (0-0.7) k/uL Basophils # (0-0.2) k/uL Sodium (137-145) mmol/L Potassium (3.5-5.1) mmol/L Chloride (98-107) mmol/L Carbon Dioxide (22-30) mmol/L Anion Gap mmol/L BUN (7-17) mg/dL Creatinine (0.52-1.04) mg/dL Est GFR (CKD-EPI)AfAm (>60 ml/min/1.73 sqM) Est GFR (CKD-EPI)NonAf (>60 ml/min/1.73 sqM) Glucose (74-99) mg/dL Calcium (8.4-10.2) mg/dL Total Bilirubin (0.2-1.3) mg/dL AST (14-36) U/L ALT (4-34) U/L Alkaline Phosphatase (38-126) U/L Total Protein (6.3-8.2) g/dL Albumin (3.5-5.0) g/dL Urine Color Urine Appearance (Clear) Urine pH (5.0-8.0) Ur Specific Guin (1.001-1.035) Urine Protein (Negative) Urine Glucose (UA) (Negative) Urine Ketones (Negative) Urine Blood (Negative) Urine Nitrite (Negative) Urine Bilirubin (Negative) Urine Urobilinogen (<2.0) mg/dL Ur Leukocyte Esterase (Negative) Salicylates mg/dL Urine Opiates Screen (NotDetected) Ur Oxycodone Screen (NotDetected) Urine Methadone Screen (NotDetected) Acetaminophen ug/mL Ur Barbiturates Screen (NotDetected) U Tricyclic Antidepress (NotDetected) Ur Phencyclidine Scrn (NotDetected) Ur Amphetamines Screen (NotDetected) U Methamphetamines Scrn (NotDetected) U Benzodiazepines Scrn (NotDetected) Urine Cocaine Screen (NotDetected) U Marijuana (THC) Screen (NotDetected) Serum Alcohol mg/dL Influenza Type A (PCR) Not Detected (Not Detectd) Influenza Type B (PCR) Not Detected (Not Detectd) RSV (PCR) Not Detected (Not Detectd) SARS-CoV-2 (PCR) Not Detected (Not Detectd) Disposition <Balbir Tello B - Last Filed: 05/10/23 02:40> Is patient prescribed a controlled substance at d/c from ED?: No - Out of Hospital Transfer - Req. Specs Out of Hospital Transfer - Requested Specifics: Psychiatric Non-ICU (Transfer) <Blake Mendez - Last Filed: 05/10/23 15:28> Clinical Impression: Attempted suicide Disposition: OTHER INSTITUTION NOT DEFINED Condition: Stable Referrals: None,Stated [Primary Care Provider] - 1-2 days
[2023-05-09 17:39] LABS: Appearance,Urine Clear (Clear); Bilirubin,Urine Negative (Negative); Blood,Urine Negative (Negative); Color,Urine Colorless; Glucose,Urine (UA) Negative (Negative); Ketones,Urine Negative (Negative); Leukocyte Esterase,Urine Negative (Negative); Nitrite,Urine Negative (Negative); PH, Urine 5.5 (5.0-8.0); Protein,Urine Negative (Negative); Specific Gravity,Urine 1.003 (1.001-1.035); Urobilinogen,Urine <2.0 mg/dL (<2.0)
[2023-05-09 17:54] LABS: Amphetamine Screen,Urine Not Detected (NotDetected); Barbiturate Screen,Urine Detected (NotDetected); Benzodiazepines Screen,Urine Not Detected (NotDetected); Cocaine Screen,Urine Not Detected (NotDetected); Methadone Screen, Urine Not Detected (NotDetected); Opiate Screen,Urine Not Detected (NotDetected); Oxycodone Screen, Urine Not Detected (NotDetected); Phencyclidine Screen,Urine Not Detected (NotDetected); Tricyclic Antidepressant,Urine Not Detected (NotDetected); Urn Cannabinoid Scrn Not Detected (NotDetected)
[2023-05-09 18:45] LABS: Basophils # (A) 0.1 k/uL (0-0.2); Basophils % (A) 1 %; Eosinophils # (A) 0.1 k/uL (0-0.7); Eosinophils % (A) 1 %; HCT 47.4 % (34.0-46.0); HGB 15.8 gm/dL (11.4-16.0); Lymphocytes # (A) 4.1 k/uL (1.0-4.8); Lymphocytes % (A) 40 %; MCH 31.8 pg (25.0-35.0); MCHC 33.3 g/dL (31.0-37.0); MCV 95.5 fL (80.0-100.0); Mean Platelet Volume 7.6; Monocytes # (A) 0.4 k/uL (0-1.0); Monocytes % (A) 4 %; Neutrophils # (A) 5.6 k/uL (1.3-7.7); Neutrophils % (A) 54 %; Platelet Count 319 k/uL (150-450); RBC 4.96 m/uL (3.80-5.40); RDW 12.9 % (11.5-15.5); WBC 10.4 k/uL (3.8-10.6)
[2023-05-09 19:08] LABS: ALT 30 U/L (4-34); AST 25 U/L (14-36); Acetaminophen 10.2 ug/mL; African American GFR (CKD) >90 (>60 ml/min/1.73 sqM); Albumin 4.2 g/dL (3.5-5.0); Alcohol <10 mg/dL; Alkaline Phosphatase 74 U/L (38-126); Anion Gap 11 mmol/L; Blood Urea Nitrogen 12 mg/dL (7-17); Calcium 9.9 mg/dL (8.4-10.2); Carbon Dioxide 19 mmol/L (22-30); Chloride 106 mmol/L (98-107); Glucose 89 mg/dL (74-99); Non-African American GFR(CKD) >90 (>60 ml/min/1.73 sqM); Salicylate <1.0 mg/dL; Sodium 136 mmol/L (137-145); Total Bilirubin 0.4 mg/dL (0.2-1.3); Total Protein 6.9 g/dL (6.3-8.2)
[2023-05-10 08:15] VITALS: RESP 18
[2023-05-10 10:43] VITALS: BP 120/86; PULSE 88; TEMP 98.2
== END 2023-05-10 10:10 | disposition other institution (70) ==
LOC: EC 16:16
DX: T14.91XA Suicide attempt, initial encounter (principal); E11.9 Type 2 diabetes mellitus without complications; E78.5 Hyperlipidemia, unspecified; I10 Essential (primary) hypertension; F17.200 Nicotine dependence, unspecified, uncomplicated; Z79.84 Long term (current) use of oral hypoglycemic drugs; Z79.899 Other long term (current) drug therapy; Z20.822 Contact with and (suspected) exposure to COVID-19
CPT/HCPCS: 36415; 93005; 80053; 85025; 81003; 80306; 80143; 87636; 80179; 99285; G0480; 80320

== ENCOUNTER → 2024-01-21 | Outpatient (CLI) | payer OTHER ==
--- NOTE | 2024-02-04 08:25 | CTL ---
EXAMINATION TYPE: CT Low Dose Lung DATE OF EXAM ORDERED: 01/21/2024 HISTORY: Nicotine dependence. Lung cancer screening CT DLP: 83.[address] CTDI: 2.4 mGy Automated exposure control for dose reduction was used. SCREENING VISIT: Initial COMPARISON: None TECHNIQUE: Low dose computed tomography scan was performed through the chest at 1 mm thick sections a nd reconstructed images in the coronal plane at [address] DIAGNOSTIC QUALITY: Satisfactory FINDINGS: LUNG NODULES: None. LUNGS: COPD: Severity: None Fibrosis: Severity: None Lymph nodes: None Other findings: None RIGHT PLEURAL SPACE: Effusion: None Calcification: None Thickening: None Pneumothorax: None LEFT PLEURAL SPACE: Effusion: None Calcification: None Thickening: None Pneumothorax: None HEART: Other: Ascending thoracic aorta at the level the main pulmonary artery measures 3.2 cm. The main pul monary artery at the bifurcation measures 2.3 cm. Heart Size: Normal Coronary calcification: None Pericardial effusion: None OTHER FINDINGS: Upper abdomen: Normal Bony thorax: Normal Supraclavicular region: Normal IMPRESSION: No suspicious changes for primary or metastatic neoplasm FOLLOW UP CT CHEST RECOMMENDATION: Follow-up low-dose CT chest one year CT LUNG RAD: Lung-Rad 1 Negative [facility], , 02/04/2024 8:22 AM
== END | disposition home or self-care (01) ==
LOC: RADCTMAIN 16:15
PROVIDERS: ATTEND Family Medicine
DX: Z12.2 Encounter for screening for malignant neoplasm of respiratory organs
CPT/HCPCS: 71271